=== PATIENT | male | born 1980 | race Caucasian/White ===

== ENCOUNTER 2016-08-06 18:32 | Emergency (ER) | payer OTHER ==
--- NOTE | 2016-08-06 21:37 | EDDOCDS ---
Physician Documentation [facility] Name: Juan Mendoza Age: 36 yrs Sex: Male : 1980 Arrival Date: 08/06/2016 Time: 18:32 Bed D4 Private MD: NO PRIMARY PHYSICIAN, . Disposition: 08/06/16 20:53 Discharged to Home/Self Care. Impression: Contusion of right knee, Pain in right foot - calcaneal heal spur, tendinitis. - Condition is Stable. - Discharge Instructions: Contusion, Tendinitis. - Prescriptions for Naprosyn 500 mg Oral Tablet - take 1 tablet by ORAL route 2 times per day take with food; 30 tablet. - Medication Reconciliation, Work Release Form - 2 day, Local Pharmacy Hours form. - Follow up: Ritesh Hunter; When: As needed; Reason: Recheck today's complaints. - Problem is new. - Symptoms are unchanged. Historical: - Allergies: no known allergies; - Home Meds: 1. multivitamin Oral tab - PMHx: none; - PSHx: ear surgery; Adenoidectomy; - Social history: Smoking status: Patient uses tobacco products, heavy tobacco smoker. No barriers to communication noted, The patient speaks fluent Tuvaluan, Speaks appropriately for age. - Family history: Not pertinent. - : The pt / caregiver states he / she is not on anticoagulants. Home medication list is obtained from the patient. - Exposure Risk Screening:: None identified. Vital Signs: 08/06 18:35 BP 136 / 73; Pulse 87; Resp 18 S; Temp 97.9(O); Pulse Ox 98% on R/A; Weight 72.57 kg / gr2 159.99 lbs (R); Height 6 ft. 0 in. (182.88 cm) (R); Pain 4/10; 21:15 BP 120 / 77; Pulse 69; Resp 18; Temp 97.4(T); Pulse Ox 98% on R/A; Pain 8/10; jmv 18:35 Body Mass Index 21.70 (72.57 kg, 182.88 cm) gr2 MDM: 19:45 Knee, Complete Ordered. EDMS 19:45 Foot, Complete Ordered. EDMS 21:04 Financial registration complete. zo 21:06 [facility] Payment Agreement was scanned into [employer] and attached to record. zo Signatures: Dispatcher [employer] Judith Posadas RN RN jo3 Leyda Reynaga Lisa, RN RN lf1 Aung Saldaña PA-C PA-C ar2 The chart was reviewed and I authenticate all verbal orders and agree with the evaluation and treatment provided.Attachments: 21:06 [facility] Payment Agreement zo MTDD
--- NOTE | 2016-08-06 21:37 | EDDOCDS ---
Nurse's Notes [facility] Name: Juan Mendoza Age: 36 yrs Sex: Male : 1980 Arrival Date: 08/06/2016 Time: 18:32 Bed D4 Private MD: NO PRIMARY PHYSICIAN, . Diagnosis: Contusion of right knee;Pain in right foot-calcaneal heal spur, tendinitis Presentation: 08/06 18:43 Presenting complaint: Patient states: Had right knee and right heel injury at work jo3 today. Having pain in both. Adult Sepsis Screening: The patient does not have new or worsening altered mentation. Patient's respiratory rate is less than 22. Systolic blood pressure is greater than 100. Patient has a qSOFA score of 0- Negative Sepsis Screen. Suicide/Homicide risk assessment- the patient denies having any suicidal and/or homicidal ideations and does not present with any other emotional, behavioral or mental health complaints. Status: Patient is not a donor services technician or dependent. Transition of care: patient was not received from another setting of care. 18:43 Acuity: MARILU Level 4 jo3 18:43 Method Of Arrival: Walkin/Carried/Asstd jo3 Triage Assessment: 18:46 General: Appears in no apparent distress, Behavior is appropriate for age, cooperative. jo3 Pain: Pain currently is 6 out of 10 on a pain scale. At worst was 8 out of 10 on a pain scale. HIV screening NA for this visit Offered previously. The patient is triaged at the bedside. See Assessment in Nurses Notes section of ED record. The patient is triaged at the bedside. See Assessment in Nurses Notes section of ED record. Neurological: Level of Consciousness is awake, alert. Historical: - Allergies: no known allergies; - Home Meds: 1. multivitamin Oral tab - PMHx: none; - PSHx: ear surgery; Adenoidectomy; - Social history: Smoking status: Patient uses tobacco products, heavy tobacco smoker. No barriers to communication noted, The patient speaks fluent Croatian, Speaks appropriately for age. - Family history: Not pertinent. - : The pt / caregiver states he / she is not on anticoagulants. Home medication list is obtained from the patient. - Exposure Risk Screening:: None identified. Screenin:24 Screening information is obtained from the patient. Fall risk: No risks identified. lf1 Assistance ADL's: requires no assistance with activities of daily living. Abuse/DV Screen: The patient / caregiver reports he/she is: not in a situation that causes fear, pain or injury. Nutritional screening: No deficits noted. Advance Directives: Currently, there is no health care proxy. home support is adequate. Assessment: 20:00 General: Appears in no apparent distress, comfortable, Behavior is appropriate for age, jf3 cooperative. Pain: Pain currently is 7 out of 10 on a pain scale. Neurological: Level of Consciousness is awake, alert, Oriented to person, place, time. Cardiovascular: Capillary refill < 3 seconds Chest pain is denied. Respiratory: Airway is patent Respiratory effort is even, unlabored, Respiratory pattern is regular, symmetrical. Derm: Skin is pink, warm & dry. 21:24 Adult Sepsis Screening: The patient does not have new or worsening altered mentation. lf1 Patient's respiratory rate is less than 22. Systolic blood pressure is greater than 100. Patient has a qSOFA score of 0- Negative Sepsis Screen. General: Appears in no apparent distress, comfortable, Behavior is appropriate for age, cooperative. Pain: Location: right knee Pain currently is 6 out of 10 on a pain scale. At worst was 8 out of 10 on a pain scale. Neurological: Level of Consciousness is awake, alert, Oriented to person, place, time. EENT: No deficits noted. Cardiovascular: No deficits noted. Respiratory: Respiratory effort is even, unlabored. GI: Denies nausea, vomiting. Derm: Skin is normal. Vital Signs: 18:35 BP 136 / 73; Pulse 87; Resp 18 S; Temp 97.9(O); Pulse Ox 98% on R/A; Weight 72.57 kg gr2 (R); Height 6 ft. 0 in. (182.88 cm) (R); Pain 4/10; 21:15 BP 120 / 77; Pulse 69; Resp 18; Temp 97.4(T); Pulse Ox 98% on R/A; Pain 8/10; jmv 18:35 Body Mass Index 21.70 (72.57 kg, 182.88 cm) gr2 Vitals: 18:35 Log In Time: August 06, 2016 at 18:35. gr2 ED Course: 18:34 Patient visited by Deja Bill. gr2 18:34 NO PRIMARY PHYSICIAN, . is Private Physician. gr2 18:34 Patient moved to Waiting gr2 18:36 Patient visited by Deja Bill. gr2 18:42 Patient moved to Pre RCE gr2 18:45 Triage Initiated jo3 18:47 Patient visited by Judith Morris RN. jo3 19:26 Patient moved to Triage 2 jf3 19:32 Aung Saldaña [facility]-C [facility]. ar2 19:32 Dashawn Yoder DO is Attending Physician. ar2 19:32 Patient visited by Aung Saldaña PA-C. ar2 20:05 Patient moved to TR4 jf3 20:40 Patient moved to D4 lf1 20:53 Ritesh Hunter is Referral Physician. ar2 21:06 [facility] Payment Agreement was scanned into [employer] and attached to record. zo 21:16 Patient visited by Ottoniel Wilcox PCA. jmv 21:24 The patient / caregiver is instructed regarding the plan of care and ED course. Ice lf1 pack to injury. 21:24 No IV's were initiated during this patient's visit. No procedures done that require lf1 assistance. Order Results: There are currently no results for this order. Outcome: 20:53 Discharge ordered by Provider. ar2 21:26 Discharge Assessment: Patient awake, alert and oriented x 3. No cognitive and/or lf1 functional deficits noted. Patient verbalized understanding of disposition instructions. Patient awake and alert. Oriented to person, place and time. Patient verbalized understanding of disposition instructions. patient administered narcotics - no. The following High Risk Discharge criteria are identified: None. Discharged to home ambulatory. Condition: unchanged. Discharge instructions given to patient, Instructed on discharge instructions, follow up and referral plans. medication usage, Demonstrated understanding of instructions, medications, Pt was receptive of discharge instructions/ teaching. Prescriptions given X 1, Work note provided to patient. No special radiology studies were completed. Property :Personal belongings accompany Pt. 21:36 Patient left the ED. lf1 Signatures: Judith Morris,SAMEER RN Leyda Aldana Lisa, RN RN lf1 Aung Saldaña PA-C PA-C ar2 eDja Bill gr2 Kenn Luque RN RN 3 Ottoniel Wilcox PCA PROTEIN PURIFICATION SCIENTIST jmv MTDD
--- NOTE | 2016-08-07 01:35 | REP ---
Clinical: Trauma. Technique: AP, lateral, bilateral oblique and sunrise views right knee . Findings: The osseous structures and joint spaces are intact and normal. There is no evidence for acute fracture or dislocation. No joint effusion is appreciated. Surrounding soft tissues are unremarkable. No subcutaneous emphysema or radiodense foreign body. Impression: No acute fracture or dislocation. Signed by Jamey Mota MD 08/07/2016 01:27 A
--- NOTE | 2016-08-07 01:37 | REP ---
Clinical: Trauma. Technique: AP, lateral, bilateral oblique views right foot . Findings: The osseous structures and joint spaces are intact and normal. There is no evidence for acute fracture or dislocation. Surrounding soft tissues are unremarkable. No subcutaneous emphysema or radiodense foreign body. Impression: No acute fracture or dislocation. Signed by Jamey Mota MD 08/07/2016 01:29 A
--- NOTE | 2016-08-08 22:37 | EDDOCDS ---
Nurse's Notes [facility] Name: Juan Mendoza Age: 36 yrs Sex: Male : 1980 Arrival Date: 08/06/2016 Time: 18:32 Bed D4 Private MD: NO PRIMARY PHYSICIAN, . Diagnosis: Contusion of right knee;Pain in right foot-calcaneal heal spur, tendinitis Presentation: 08/06 18:43 Presenting complaint: Patient states: Had right knee and right heel injury at work jo3 today. Having pain in both. Adult Sepsis Screening: The patient does not have new or worsening altered mentation. Patient's respiratory rate is less than 22. Systolic blood pressure is greater than 100. Patient has a qSOFA score of 0- Negative Sepsis Screen. Suicide/Homicide risk assessment- the patient denies having any suicidal and/or homicidal ideations and does not present with any other emotional, behavioral or mental health complaints. Status: Patient is not a sales service representative or dependent. Transition of care: patient was not received from another setting of care. 18:43 Acuity: MARILU Level 4 jo3 18:43 Method Of Arrival: Walkin/Carried/Asstd jo3 Triage Assessment: 18:46 General: Appears in no apparent distress, Behavior is appropriate for age, cooperative. jo3 Pain: Pain currently is 6 out of 10 on a pain scale. At worst was 8 out of 10 on a pain scale. HIV screening NA for this visit Offered previously. The patient is triaged at the bedside. See Assessment in Nurses Notes section of ED record. The patient is triaged at the bedside. See Assessment in Nurses Notes section of ED record. Neurological: Level of Consciousness is awake, alert. Historical: - Allergies: no known allergies; - Home Meds: 1. multivitamin Oral tab - PMHx: none; - PSHx: ear surgery; Adenoidectomy; - Social history: Smoking status: Patient uses tobacco products, heavy tobacco smoker. No barriers to communication noted, The patient speaks fluent Setswana, Speaks appropriately for age. - Family history: Not pertinent. - : The pt / caregiver states he / she is not on anticoagulants. Home medication list is obtained from the patient. - Exposure Risk Screening:: None identified. Screenin:24 Screening information is obtained from the patient. Fall risk: No risks identified. lf1 Assistance ADL's: requires no assistance with activities of daily living. Abuse/DV Screen: The patient / caregiver reports he/she is: not in a situation that causes fear, pain or injury. Nutritional screening: No deficits noted. Advance Directives: Currently, there is no health care proxy. home support is adequate. Assessment: 20:00 General: Appears in no apparent distress, comfortable, Behavior is appropriate for age, jf3 cooperative. Pain: Pain currently is 7 out of 10 on a pain scale. Neurological: Level of Consciousness is awake, alert, Oriented to person, place, time. Cardiovascular: Capillary refill < 3 seconds Chest pain is denied. Respiratory: Airway is patent Respiratory effort is even, unlabored, Respiratory pattern is regular, symmetrical. Derm: Skin is pink, warm & dry. 21:24 Adult Sepsis Screening: The patient does not have new or worsening altered mentation. lf1 Patient's respiratory rate is less than 22. Systolic blood pressure is greater than 100. Patient has a qSOFA score of 0- Negative Sepsis Screen. General: Appears in no apparent distress, comfortable, Behavior is appropriate for age, cooperative. Pain: Location: right knee Pain currently is 6 out of 10 on a pain scale. At worst was 8 out of 10 on a pain scale. Neurological: Level of Consciousness is awake, alert, Oriented to person, place, time. EENT: No deficits noted. Cardiovascular: No deficits noted. Respiratory: Respiratory effort is even, unlabored. GI: Denies nausea, vomiting. Derm: Skin is normal. Vital Signs: 18:35 BP 136 / 73; Pulse 87; Resp 18 S; Temp 97.9(O); Pulse Ox 98% on R/A; Weight 72.57 kg gr2 (R); Height 6 ft. 0 in. (182.88 cm) (R); Pain 4/10; 21:15 BP 120 / 77; Pulse 69; Resp 18; Temp 97.4(T); Pulse Ox 98% on R/A; Pain 8/10; jmv 18:35 Body Mass Index 21.70 (72.57 kg, 182.88 cm) gr2 Vitals: 18:35 Log In Time: August 06, 2016 at 18:35. gr2 ED Course: 18:34 Patient visited by Deja Bill. gr2 18:34 NO PRIMARY PHYSICIAN, . is Private Physician. gr2 18:34 Patient moved to Waiting gr2 18:36 Patient visited by Deja Bill. gr2 18:42 Patient moved to Pre RCE gr2 18:45 Triage Initiated jo3 18:47 Patient visited by Judith Morris RN. jo3 19:26 Patient moved to Triage 2 jf3 19:32 Aung Saldaña PA-C is PHCP. ar2 19:32 Dashawn Yoder DO is Attending Physician. ar2 19:32 Patient visited by Aung Saldaña PA-C. ar2 20:05 Patient moved to TR4 jf3 20:40 Patient moved to D4 lf1 20:53 Ritesh Hunter is Referral Physician. ar2 21:06 [facility] Payment Agreement was scanned into [employer] and attached to record. zo 21:16 Patient visited by Ottoniel Wilcox PCA. jmv 21:24 The patient / caregiver is instructed regarding the plan of care and ED course. Ice lf1 pack to injury. 21:24 No IV's were initiated during this patient's visit. No procedures done that require lf1 assistance. 08/07 01:48 Knee, Complete Returned. EDMS 01:48 Foot, Complete Returned. EDMS 11:35 T-Sheet-- Draft Copy was scanned into [employer] and attached to record. gb Order Results: Radiology Order: Knee, Complete Test: Knee, Complete REASON FOR EXAMINATION: anterior trauma; Clinical: Trauma.; ; Technique: AP, lateral, bilateral oblique and sunrise views right knee .; ; Findings: The osseous structures and joint spaces are intact and normal. There; is no evidence for acute fracture or dislocation. No joint effusion is; appreciated. Surrounding soft tissues are unremarkable. No subcutaneous; emphysema or radiodense foreign body.; ; Impression:; No acute fracture or dislocation.; ; ; Signed by; Jamey Mota MD 08/07/2016 01:27 A; Radiology Order: Foot, Complete Test: Foot, Complete REASON FOR EXAMINATION: posterior, calcaneal trauma; Clinical: Trauma.; ; Technique: AP, lateral, bilateral oblique views right foot .; ; Findings: The osseous structures and joint spaces are intact and normal. There; is no evidence for acute fracture or dislocation. Surrounding soft tissues are; unremarkable. No subcutaneous emphysema or radiodense foreign body.; ; Impression:; No acute fracture or dislocation.; ; ; Signed by; Jamey Mota MD 08/07/2016 01:29 A; Outcome: 08/06 20:53 Discharge ordered by Provider. ar2 21:26 Discharge Assessment: Patient awake, alert and oriented x 3. No cognitive and/or lf1 functional deficits noted. Patient verbalized understanding of disposition instructions. Patient awake and alert. Oriented to person, place and time. Patient verbalized understanding of disposition instructions. patient administered narcotics - no. The following High Risk Discharge criteria are identified: None. Discharged to home ambulatory. Condition: unchanged. Discharge instructions given to patient, Instructed on discharge instructions, follow up and referral plans. medication usage, Demonstrated understanding of instructions, medications, Pt was receptive of discharge instructions/ teaching. Prescriptions given X 1, Work note provided to patient. No special radiology studies were completed. Property :Personal belongings accompany Pt. 21:36 Patient left the ED. lf1 Signatures: Dispatcher [employer] EDMS Diane Weber, Reg Reg Judith Paz,RN RN jo3 Leyda Reynaga Lisa,SAMEER RN lf1 Aung Saldaña, PA-C PA-C ar2 Deja Bill gr2 Kenn Luque,RN RN jf3 Ottoniel Wilcox, FATUMA mahoney Chart Complete MTDD
--- NOTE | 2016-08-08 22:37 | EDDOCDS ---
Physician Documentation [facility] Name: Juan Mendoza Age: 36 yrs Sex: Male : 1980 Arrival Date: 08/06/2016 Time: 18:32 Bed D4 Private MD: NO PRIMARY PHYSICIAN, . Disposition: 08/06/16 20:53 Discharged to Home/Self Care. Impression: Contusion of right knee, Pain in right foot - calcaneal heal spur, tendinitis. - Condition is Stable. - Discharge Instructions: Contusion, Tendinitis. - Prescriptions for Naprosyn 500 mg Oral Tablet - take 1 tablet by ORAL route 2 times per day take with food; 30 tablet. - Medication Reconciliation, Work Release Form - 2 day, Local Pharmacy Hours form. - Follow up: Ritesh Hunter; When: As needed; Reason: Recheck today's complaints. - Problem is new. - Symptoms are unchanged. Historical: - Allergies: no known allergies; - Home Meds: 1. multivitamin Oral tab - PMHx: none; - PSHx: ear surgery; Adenoidectomy; - Social history: Smoking status: Patient uses tobacco products, heavy tobacco smoker. No barriers to communication noted, The patient speaks fluent Belarusian, Speaks appropriately for age. - Family history: Not pertinent. - : The pt / caregiver states he / she is not on anticoagulants. Home medication list is obtained from the patient. - Exposure Risk Screening:: None identified. Vital Signs: 08/06 18:35 BP 136 / 73; Pulse 87; Resp 18 S; Temp 97.9(O); Pulse Ox 98% on R/A; Weight 72.57 kg / gr2 159.99 lbs (R); Height 6 ft. 0 in. (182.88 cm) (R); Pain 4/10; 21:15 BP 120 / 77; Pulse 69; Resp 18; Temp 97.4(T); Pulse Ox 98% on R/A; Pain 8/10; jmv 18:35 Body Mass Index 21.70 (72.57 kg, 182.88 cm) gr2 MDM: 19:45 Knee, Complete Ordered. EDMS 19:45 Foot, Complete Ordered. EDMS 21:04 Financial registration complete. zo 21:06 [facility] Payment Agreement was scanned into [employer] and attached to record. zo 08/07 11:35 T-Sheet-- Draft Copy was scanned into [employer] and attached to record. gb Signatures: Dispatcher [employer] EDDiane Rucker, Reg Reg Judith Paz,RN RN jo3 Leyda Reynaga Lisa, RN RN lf1 Aung Saldaña, EDENILSON schwartz2 The chart was reviewed and I authenticate all verbal orders and agree with the evaluation and treatment provided.Attachments: 08/06 21:06 [facility] [place] Agreement zo 08/07 11:35 T-Sheet-- Draft Copy gb Chart Complete MTDD
--- NOTE | 2016-08-08 22:37 | EDDOCDS ---
Physician Documentation [facility] Name: Juan Mendoza Age: 36 yrs Sex: Male : 1980 Arrival Date: 08/06/2016 Time: 18:32 Bed D4 Private MD: NO PRIMARY PHYSICIAN, . Disposition: 08/06/16 20:53 Discharged to Home/Self Care. Impression: Contusion of right knee, Pain in right foot - calcaneal heal spur, tendinitis. - Condition is Stable. - Discharge Instructions: Contusion, Tendinitis. - Prescriptions for Naprosyn 500 mg Oral Tablet - take 1 tablet by ORAL route 2 times per day take with food; 30 tablet. - Medication Reconciliation, Work Release Form - 2 day, Local Pharmacy Hours form. - Follow up: Ritesh Hunter; When: As needed; Reason: Recheck today's complaints. - Problem is new. - Symptoms are unchanged. Historical: - Allergies: no known allergies; - Home Meds: 1. multivitamin Oral tab - PMHx: none; - PSHx: ear surgery; Adenoidectomy; - Social history: Smoking status: Patient uses tobacco products, heavy tobacco smoker. No barriers to communication noted, The patient speaks fluent Zimbabwean, Speaks appropriately for age. - Family history: Not pertinent. - : The pt / caregiver states he / she is not on anticoagulants. Home medication list is obtained from the patient. - Exposure Risk Screening:: None identified. Vital Signs: 08/06 18:35 BP 136 / 73; Pulse 87; Resp 18 S; Temp 97.9(O); Pulse Ox 98% on R/A; Weight 72.57 kg / gr2 159.99 lbs (R); Height 6 ft. 0 in. (182.88 cm) (R); Pain 4/10; 21:15 BP 120 / 77; Pulse 69; Resp 18; Temp 97.4(T); Pulse Ox 98% on R/A; Pain 8/10; jmv 18:35 Body Mass Index 21.70 (72.57 kg, 182.88 cm) gr2 MDM: 19:45 Knee, Complete Ordered. EDMS 19:45 Foot, Complete Ordered. EDMS 21:04 Financial registration complete. zo 21:06 [facility] Payment Agreement was scanned into [employer] and attached to record. zo 08/07 11:35 T-Sheet-- Draft Copy was scanned into [employer] and attached to record. gb Signatures: Dispatcher [employer] EDDiane Rucker, Reg Reg Judith Paz,RN RN jo3 Leyda Reynaga Lisa, RN RN lf1 Aung Saldaña, EDENILSON schwartz2 The chart was reviewed and I authenticate all verbal orders and agree with the evaluation and treatment provided.Attachments: 08/06 21:06 [facility] [place] Agreement zo 08/07 11:35 T-Sheet-- Draft Copy gb Chart Complete MTDD
== END 2016-08-06 21:36 | disposition home or self-care (01) ==
LOC: M ED 18:32
DX: S80.11XA Contusion of right lower leg, initial encounter (principal); X58.XXXA Exposure to other specified factors, initial encounter; Y92.89 Other specified places as the place of occurrence of the external cause; Y93.89 Activity, other specified; Y99.0 Civilian activity done for income or pay; M65.271 Calcific tendinitis, right ankle and foot; M77.31 Calcaneal spur, right foot; F17.210 Nicotine dependence, cigarettes, uncomplicated; Z79.899 Other long term (current) drug therapy

== ENCOUNTER → 2017-03-19 | Outpatient (CLI) | payer OTHER ==
--- NOTE | 2017-03-19 18:32 | REP ---
Clinical: Back pain with injury. Technique: AP, lateral, bilateral oblique and coned-down views of the lumbosacral spine. Findings: Mild levoconvex scoliosis is appreciated. Alignment is maintained. No acute fracture / compression injury or subluxation. Moderate degenerative changes are appreciated including marginal osteophytes, endplate sclerosis and minimal disc space narrowing. Findings are most pronounced at the L5-S1 and L4-L5 levels. Spinous processes are intact. No evidence for spondylolysis or spondylolisthesis. Impression: Moderate degenerative changes at the L4-5 and L5-S1 levels. Mild levoconvex scoliosis. No acute fracture / compression injury or subluxation. Signed by Jamey Mota MD 03/19/2017 06:24 P
== END ==
LOC: M WUC 18:02
PROVIDERS: ATTEND Physician Assistant
DX: M51.37 Other intervertebral disc degeneration, lumbosacral region (principal); M41.9 Scoliosis, unspecified

== ENCOUNTER → 2019-10-20 | Outpatient (CLI) | payer BC ==
--- NOTE | 2019-10-20 14:42 | REP ---
CHEST TWO VIEWS: There is no evidence of acute infiltrate. No pleural effusion is seen. The heart is normal in size. The mediastinal silhouette is unremarkable. The visualized osseous structures are intact. IMPRESSION: No acute pulmonary disease. Electronically Signed by Regis Zimmerman MD 10/20/2019 03:47 P
== END ==
LOC: M LAB 13:18 → M RAD 13:18
PROVIDERS: ATTEND Physician Assistant
DX: J02.9 Acute pharyngitis, unspecified (principal); R07.89 Other chest pain

== ENCOUNTER → 2019-10-20 | Outpatient (REF) | payer BC | LOC: M LAB REF 17:01 | PROVIDERS: ATTEND Physician Assistant | DX: J02.9 Acute pharyngitis, unspecified (principal) ==

== ENCOUNTER 2021-05-10 18:36 | Emergency (ER) | payer OTHER, BC ==
[~2021-05-10] VITALS: Ht 182.9 cm; Wt 80.5 kg
--- NOTE | 2021-05-10 19:47 | REP ---
INDICATION: pain after a fall. COMPARISON: None. TECHNIQUE: Four views FINDINGS: The ankle mortise joint is preserved. Talar dome shows no osteochondral defect. There is soft tissue swelling over the anterolateral aspect of the ankle. Achilles insertional spur is noted in the posterior calcaneus. Subtalar joints are intact. Talonavicular and calcaneocuboid joints are normal. See no avulsion or fracture of the distal tibia or fibula. Tarsal bones and visualized metatarsals intact. IMPRESSION: 1. Anterolateral soft tissue swelling about the ankle but no visible fracture, avulsion, disruption of the mortise joint or other acute bony finding. 2. Achilles insertional spur on the posterior calcaneus. <Electronically signed by Kit Young > 05/10/211942
--- OUTSIDE RECORDS SUMMARY | 2021-05-10 21:14 | CCD ---
Author Author [facility] Organization [facility] Address Unknown Phone Unavailable Support Name Relationship Address Phone TRINASTEVEROGEGAVI Next Of Kin [address] [place] [address] [employer] [place] Next Of Kin [address] [place] [address] CHAYO WESLEY Next Of Kin [address] [place] [address] Re-disclosure Warning The records that you are about to access may contain information from federally-assisted alcohol or drug abuse programs. If such information is present, then the following federally mandated warning applies: This information has been disclosed to you from records protected by federal confidentiality rules (42 CFR part 2). The federal rules prohibit you from making any further disclosure of this information unless further disclosure is expressly permitted by the written consent of the person to whom it pertains or as otherwise permitted by 42 CFR part 2. A general authorization for the release of medical or other information is NOT sufficient for this purpose. The Federal rules restrict any use of the information to criminally investigate or prosecute any alcohol or drug abuse patient.The records that you are about to access may contain highly sensitive health information, the redisclosure of which is protected by Article 27-F of the [facility] Public Health law. If you continue you may have access to information: Regarding HIV / AIDS; Provided by facilities licensed or operated by the [facility] Office of Mental Health; or Provided by the [facility] Office for People With Developmental Disabilities. If such information is present, then the following [facility] mandated warning applies: This information has been disclosed to you from confidential records which are protected by state law. State law prohibits you from making any further disclosure of this information without the specific written consent of the person to whom it pertains, or as otherwise permitted by law. Any unauthorized further disclosure in violation of state law may result in a fine or snf sentence or both. A general authorization for the release of medical or other information is NOT sufficient authorization for further disc losure. Family History Family Member Name Family Member Gender Family Member Status Date o f Status Description Data Source(s) Unknown Unknown Problem [facility] ([facility]) Unknown Male Problem [facility] ([facility]) Medications No Information Insurance Providers Payer name Policy type / Coverage type Policy ID Covered alliance party ID Covered alliance party's relationship to fulton Policy [place] Plan Information [facility] Workers Compensation [id number] Self [id number] [facility]) Workers Compensation [id number] Self [id number] [facility] Workers Compensation [id number] Self [id number] [facility] Workers Compensation [id number] Self [id number] [place] [id number] Self [id number] [facility] Workers Compensation [id number] Self [id number] [facility] [id number] SP [id number] [facility] [id number] SP [id number] [employer] [id number] SP [id number] [employer] O [id number] S [id number] OTHER WORKERS COMPENSATI O [id number] S [id number] [employer] COMP [id number] SP [id number] Sliding Fee Scale P UNAVAILABLE S UNAVAILABLE [employer] [place] [employer] P[place]/307 [id number] SP [id number] [employer] [place] P[place]/307 [id number] SP [id number] Sliding Fee Scale P [id number] S [id number] BLUE CROSS BLUE SHIELD -O/P [id number] BCBS/Blue Card Medigap Part B [id number] Self [id number] Problems, Conditions, and Diagnoses No Information Surgeries/Procedures No Information Results No Information Social History No Information
[2021-05-10 21:26] VITALS: BP 121/64
== END 2021-05-10 21:28 | disposition home or self-care (01) ==
LOC: M ED 18:36
DX: S93.401A Sprain of unspecified ligament of right ankle, initial encounter (principal); X50.1XXA Overexertion from prolonged static or awkward postures, initial encounter; Y92.89 Other specified places as the place of occurrence of the external cause; Y93.9 Activity, unspecified; Y99.0 Civilian activity done for income or pay; M77.31 Calcaneal spur, right foot